=== PATIENT | female | born 1965 | race Caucasian/White ===

== ENCOUNTER → 2018-09-12 16:44 | Outpatient (CLI) | payer OTHER, SELFPAY ==
[2018-09-12 16:07] VITALS: BMI 20.6
--- NOTE | 2018-09-12 16:48 | RAD_ITS ---
HISTORY: Injury COMPARISON: None FINDINGS: XR left wrist 3 views No fracture, dislocation, or bony abnormality. Joint spaces are preserved. Mild soft tissue swelling at the radial wrist. No radiopaque foreign body. RAD/Wrist min 3 Views IMPRESSION: 1. No fracture or acute osseous abnormality. 2. Mild soft tissue swelling. at 0040 Reported and signed by: Benton Marcos MD Electronically Signed: Benton Marcos, at 0:39 EDT Tel , Service support ,
== END ==
PROVIDERS: Family Provider Internal Medicine; PCP Internal Medicine; Referring Provider Nurse Practitioner Family; Visit Provider Nurse Practitioner Family
DX: S69.92XA Unspecified injury of left wrist, hand and finger(s), initial encounter (principal)
CPT/HCPCS: 73110

== ENCOUNTER → 2019-01-11 | Outpatient (CLI) | payer OTHER, SELFPAY ==
[2019-01-09 16:19] VITALS: BMI 19.7
== END | disposition home or self-care (01) ==
PROVIDERS: Family Provider Internal Medicine; PCP Internal Medicine; Referring Provider Nurse Practitioner Family; Visit Provider Nurse Practitioner Family
DX: B83.9 Helminthiasis, unspecified (principal)
CPT/HCPCS: 87177; 87209

== ENCOUNTER → 2019-09-25 | Outpatient (CLI) | payer OTHER, SELFPAY ==
[2019-09-24 14:20] VITALS: BMI 19.7
== END | disposition home or self-care (01) ==
LOC: LABSPEC 09-26 13:59
PROVIDERS: PCP Internal Medicine; Referring Provider Internal Medicine; Visit Provider Internal Medicine
DX: Z20.828 Contact with and (suspected) exposure to other viral communicable diseases (principal)
CPT/HCPCS: 87635; G2023; U0004

== ENCOUNTER → 2019-12-27 | Outpatient (CLI) | payer OTHER, SELFPAY ==
[2019-12-27 10:27] VITALS: BMI 19.7
== END | disposition home or self-care (01) ==
LOC: MTDU 17:49
PROVIDERS: PCP Internal Medicine; Referring Provider Physician Assistant; Visit Provider Physician Assistant
DX: Z20.828 Contact with and (suspected) exposure to other viral communicable diseases (principal); R05 Cough; R06.02 Shortness of breath; R51 Headache; R19.7 Diarrhea, unspecified
CPT/HCPCS: 87635; 94799; U0003

== ENCOUNTER 2020-04-10 06:42 | Emergency (ER) | payer OTHER, SELFPAY ==
[2019-12-27 10:27] VITALS: BMI 19.7
[2020-04-10 06:44] VITALS: BP 129/91; PULSE 72; RESP 18; TEMP 36.1; O2SAT 100; BMI 22.4
--- NOTE | 2020-04-10 07:29 | ED.VIS.GEN ---
History of Present Illness Chief Complaint: Mental Health Informant: Patient Narrative: Patient presents to the ER due to concern that she is being poisoned by her employer. She states that she feels she is being targeted by employer because she knows of something bad that he had done. She states that since the spring she has been getting recurrent illnesses with no explanation. She is concerned that she is losing her hair, her eyebrows are falling off, and she reports a rash on the bottom of her feet that caused peeling. One week ago she noted some discoloration in the water canister of the correct machine at work and she is concerned that someone is trying to poison her. She does report having difficulty focusing and does report having hallucinations. - Past Medical History (1) Anxiety disorder Status: Chronic Past Medical History - Allergies and Home Meds Allergies/Adverse Reactions: Allergies Penicillins [PCN] Allergy (Verified 04/10/20 06:43) Unknown Primary Care Physician: Danny Tony MD [Primary Care Provider] - Prior records reviewed: Yes Smoking Status: Current every day smoker Drugs: Marijuana Review of Systems General: Denies: Chills, Fever Eyes: Reports: - - Difficulty focusing her eyes at times ENT: Denies: Bilateral ear pain Cardiovascular: Denies: Chest pain Respiratory: Denies: Dyspnea, Cough Gastrointestinal: Denies: Abdominal pain, Nausea, Vomiting Genitourinary: Denies: Dysuria Skin: Reports: - - Reports skin on the bottom of her feet peeling off recently Neurological: Reports: Headache - Intermittent headaches Endocrine: Denies: Polyuria, Polydipsia Allergy: Denies: Swelling of the mouth, Swelling of the tongue Physical Exam Vital Signs/Narrative: Vital Signs Temp Pulse Resp BP Pulse Ox 04/10/20 06:44 96.9 F L 72 18 129/91 H 100 Inital Vital Signs reviewed: Yes General: Well nourished, Well developed Head: Normocephalic ENT: Moist mucous membranes Neck: Supple Cardiovascular: Regular rate, Regular rhythm Respiratory: No distress, CTA bilaterally Abdomen: Soft, Nontender, Normal bowel sounds Extremities: Nontender Skin: Normal color Neurological: Alert, Oriented x3 Psychological: - - Anxious and paranoid Diagnostic/Tx/Re-eval Laboratory Results 04/10/20 04/10/20 04/10/20 07:40 07:50 07:50 WBC 4.8 RBC 5.22 Hgb 12.6 Hct 41.7 MCV 79.9 L MCH 24.1 L MCHC 30.2 L RDW Std Deviation 44.4 H RDW Coeff of Monserrat 15.6 H Plt Count 339 MPV 10.9 Immature Gran % (Auto) 0.400 Neut % (Auto) 55.2 Lymph % (Auto) 32.6 [place] % (Auto) 6.5 Eos % (Auto) 3.6 Baso % (Auto) 1.7 H Absolute Neuts (auto) 2.6 Absolute Lymphs (auto) 1.55 Nucleated RBC % 0 Sodium 144 Potassium 4.4 Chloride 109 H Carbon Dioxide 33.0 H Anion Gap 2 L BUN 23 H Creatinine 0.84 Estim Creat Clear Calc 70.50 Est GFR (MDRD) Af Amer 92 Est GFR (MDRD) Non-Af 76 BUN/Creatinine Ratio 27.5 H Glucose 99 Calcium 9.3 TSH 1.90 Serum , Qual Urine Opiates Screen NEGATIVE Urine Methadone Screen NEGATIVE Ur Barbiturates Screen NEGATIVE Ur Phencyclidine Scrn NEGATIVE Ur Amphetamines Screen POSITIVE H U Methamphetamin-MDMA NEGATIVE U Benzodiazepines Scrn NEGATIVE Urine Cocaine Screen NEGATIVE U Cannabinoids Screen POSITIVE H Ur Drug Screen Comment Ethyl Alcohol 04/10/20 04/10/20 07:50 07:50 WBC RBC Hgb Hct MCV MCH MCHC RDW Std Deviation RDW Coeff of [place]errat Plt Count MPV Immature Gran % (Auto) Neut % (Auto) Lymph % (Auto) [place] % (Auto) Eos % (Auto) Baso % (Auto) Absolute Neuts (auto) Absolute Lymphs (auto) Nucleated RBC % Sodium Potassium Chloride Carbon Dioxide Anion Gap BUN Creatinine Estim Creat Clear Calc Est GFR (MDRD) Af Amer Est GFR (MDRD) Non-Af BUN/Creatinine Ratio Glucose Calcium TSH Serum , Qual NEGATIVE Urine Opiates Screen Urine Methadone Screen Ur Barbiturates Screen Ur Phencyclidine Scrn Ur Amphetamines Screen U Methamphetamin-MDMA U Benzodiazepines Scrn Urine Cocaine Screen U Cannabinoids Screen Ur Drug Screen Comment Ethyl Alcohol < 3.0 - Medical Decision Making Patient had laboratory evaluation for mental health evaluation. She did display paranoia but no suicidal homicidal ideation. With a nurse who back in to check on her patient stated that she wished to just leave. At this time I have no indications to pink slip her. She does have a primary care physician to follow-up with. Patient left the emergency room prior to completion of all her labs and treatment. ED Disposition - Plan for ED Patient: Disposition: Home or Assisted Living Diagnosis: Paranoia Referrals: Danny Tony MD [Primary Care Provider] -
[2020-04-10 08:00] LABS: Amphetamine Urine VISTA POSITIVE (<1000 ng/mL); Barbiturate Urine VISTA NEGATIVE (< 200 ng/mL); Benzodiazepine Urine VISTA NEGATIVE (< 200 ng/mL); Cocaine Urine VISTA NEGATIVE (< 300 ng/mL); Ecstacy Urine VISTA NEGATIVE (< 500 ng/mL); Methadone Urine VISTA NEGATIVE (< 300 ng/mL); PCP Urine VISTA NEGATIVE (< 25 ng/mL); THC Urine VISTA POSITIVE (< 50 ng/mL); Vista UDS pH Range 6
[2020-04-10 08:00] LABS: Absolute Lymphocyte Count 1.55 X10^3/uL (0.83-4.51); Absolute Neutrophil Count 2.6 X10^3/uL (2.0-7.7); Basophil# 0.08 X10^3/uL; Basophil% 1.7 % (0-1); Eosinophil# 0.17 X10^3/uL; Eosinophils% 3.6 % (0-5); Hematocrit 41.7 % (37-47); Hemoglobin 12.6 g/dL (12.0-15.0); Lymphocyte # 1.55 X10^3/ul (4.0); Lymphocyte % 32.6 % (19-41); Mean Corp Hgb Conc 30.2 g/dL (32-36); Mean Corpuscular Hgb 24.1 pg (27.0-32.0); Mean Corpuscular Volume 79.9 fL (81-99); Mean Platelet Vol. 10.9 fl (6.2-12.0); Monocyte# 0.31 X10^3/uL; Monocyte% 6.5 % (0-10); NRBC Flagged by Analyzer 0 % (0-5); Neutrophil # 2.63 X10^3/uL (2.7-7.7); Neutrophil % 55.2 % (47-70); Platelet Count 339 K/mm3 (150-450); RBC Distribution Width CV 15.6 % (11.6-14.6); RBC Distribution Width SD 44.4 fl (35.1-43.9); Red Blood Count 5.22 M/mm3 (4.2-5.4); White Blood Count 4.8 K/mm3 (4.4-11.0)
[2020-04-10 08:13] LABS: Internal QC Validated? YES +Cl - CLEAR BKGD; Pregnancy, Serum, hCG Quali. NEGATIVE Negative
[2020-04-10 08:15] LABS: Alcohol, Blood (Medical)-Serum < 3.0 mg/dL
[2020-04-10 08:20] LABS: Anion Gap 2 (5-15); BUN 23 mg/dL (7-18); BUN/Creat Ratio 27.5 RATIO (10-20); Calcium,Total 9.3 mg/dL (8.5-10.1); Chloride 109 mmol/L (98-107); Creatinine, Serum 0.84 mg/dL (0.55-1.02); EST Glomerular Filtration Rate 76 mL/min (>60); Est Glom Filt Rate - Afr Amer 92 mL/min (>60); Glucose 99 mg/dL (74-106); Potassium 4.4 mmol/L (3.5-5.1); Sodium Level 144 mmol/L (136-145)
--- NOTE | 2020-04-10 08:33 | ED.RN ---
PT REQUESTING TO GO HOME. PT STATES I JUST WANT TO GO HOME AND WAIT FOR MY COVID RESULTS. I HAVE A DYING PET AT HOME AND I DO NOT WANT IT DYING ALONE DR STEWART NOTIFIED. PT IS NOT PINK SLIPPED. PT IS NOT SUICIDAL.
== END 2020-04-10 08:59 | disposition left against medical advice (07) ==
PROVIDERS: Emergency Provider Emergency Medicine; PCP Internal Medicine
DX: F22 Delusional disorders (principal); F41.9 Anxiety disorder, unspecified; R21 Rash and other nonspecific skin eruption; R51.9 Headache, unspecified; Z79.899 Other long term (current) drug therapy; F17.200 Nicotine dependence, unspecified, uncomplicated
CPT/HCPCS: 80048; 80307; 80320; 84443; 84703; 85025; 87635; 99281; G0480; U0002